=== PATIENT | female | born 1945 | race Caucasian/White ===

== ENCOUNTER 2016-11-29 05:21 | Inpatient (IN) | payer MEDICARE, OTHER ==
--- NOTE | ~2016-11-29 | HP ---
History And Physical [id number] [place]. [address] NAME: CRISPIN FERNANDEZ : 49 STATUS : ADM IN [facility]#: [id number] AGE: 71 ADM/REG DATE : 11/29/16 MR#: [id number] REPORT SERV DATE: 12/03/16 DICTATED BY: VAL HARDY III DATE: 11/29/16 REPORT STATUS : Draft TRANSCRIBED BY: MODTanya DATE: 11/29/16 DATE OF ADMISSION: 11/29/2016 HISTORY OF PRESENT ILLNESS: This 71-year-old female was admitted to the hospital emergently with acute abdominal pain. The patient complains of a one-day history of abdominal pain. The pain is primarily in the right upper quadrant. The pain began yesterday suddenly after eating. The pain has been associated with nausea and vomiting. The patient describes the pain as 8/10. The patient states that the pain is much better after admission to the hospital. The patient presented to the emergency room this morning with this pain. CT scan of the abdomen and pelvis were performed, which showed a right lower quadrant fluid collection of concern for an abscess. It was felt by the ER physician that admission to the hospital is indicated. The patient has no prior history of similar symptoms. She has had no diarrhea. She has had no fever or chills. The patient is status post sigmoid colectomy, which was performed for severe sigmoid diverticular disease on 10/25/2016, over one month ago. The patient's postoperative course was uneventful. The patient's recovery was uneventful. PAST MEDICAL HISTORY: 1. History of severe sigmoid diverticulitis with stricture, status post sigmoid colectomy as above. 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 2. Obesity. 3. History of elevated liver enzymes of unclear etiology. 4. Gastroesophageal reflux disease. 5. Degenerative joint disease. 6. Diabetes mellitus. ALLERGIES: ERYTHROMYCIN. MEDICATIONS: Cartia, Zantac, meclizine, and Dulera. SOCIAL HISTORY: The patient is . She lives locally. She is not employed. She has no history tobacco or alcohol use. FAMILY HISTORY: Unremarkable. REVIEW OF SYSTEMS: The patient's 14-point review of systems is otherwise unremarkable. PHYSICAL EXAMINATION: GENERAL: This is an obese female, in no acute distress. She is alert and oriented x3. VITAL SIGNS: Blood pressure 132/74, temperature 98, and pulse 90. History And Physical [address] [place]. [address] NAME: CRISPIN FERNANDEZ : 49 STATUS : ADM IN [facility]#: [id number] AGE: 71 ADM/REG DATE : 11/29/16 MR#: [id number] REPORT SERV DATE: 12/03/16 DICTATED BY: VAL HARDY III DATE: 11/29/16 REPORT STATUS : Draft TRANSCRIBED BY: MILDRED DATE: 11/29/16 HEENT: Unremarkable. Cranial nerves II through XII are normal. LUNGS: Clear. CARDIAC: Normal. ABDOMEN: Soft and nontender. EXTREMITIES: Normal with no edema. LABORATORY DATA: The patient's white blood cell count is slightly elevated at 14.2 and hematocrit is normal at 38.5. Her electrolytes and liver enzymes are normal. CT scan of the abdomen and pelvis, which I reviewed shows a small fluid collection in the right lower quadrant. I reviewed this with Dr. Rober Tucker of Radiology. He does not feel this is consistent with appendicitis even though the appendix is near this area. There is noted to be a smaller fluid collection posterior to the rectal anastomosis. There is no evidence for air. The gallbladder appeared to be normal. ASSESSMENT: 1. A 71-year-old female with acute right upper quadrant abdominal pain. The etiology for this is unclear. 2. Inflammatory process in the right lower quadrant with two air-fluid collections which were small, consistent with abscesses. Clinically, however, this would more likely consistent with postoperative fluid collection related to her sigmoid colectomy, which was over one month ago. 3. Obesity. 4. History of severe sigmoid diverticulitis. 5. History of elevated liver enzymes. It should be noted that a liver biopsy was performed at the time of her previous surgery. This liver biopsy showed steatohepatitis. 6. History of recurrent episodes of sigmoid diverticulitis since 2009. 7. Diabetes mellitus. 8. Degenerative joint disease. 9. Gastroesophageal reflux disease. PLAN: The patient has been admitted, started on parenteral fluids, bowel rest and antibiotics empirically. While the patient does have a fluid collection seen in the pelvis on CT scan, I am concerned that this is not the etiology for her pain, which seems more likely to be biliary in origin. Nevertheless, I requested CT-directed drainage of this fluid collection to determine if this is an infected fluid collection. Even if it is, it is not consistent with the etiology for her pain. We will proceed with this procedure, which I have discussed with Radiology. Further workup including possible gallbladder ultrasound and HIDA scan may be indicated depending on results of this drainage procedure and the patient's clinical course. I have discussed this with the patient. I have discussed the discrepancy between the radiographic findings and her symptoms. Her questions were answered. She understands and agrees to this as planned. ADDENDUM: Ms. Fernandez remains stable at this time but continued to have upper abdominal pain, bloating, nausea, vomiting, food intolerance, and symptoms consistent with cholecystitis. Her gallbladder ultrasound shows sludge and her HIDA scan shows an abnormal ejection fraction. History And Physical [address] [address] NAME: CRISPIN FERNANDEZ : 49 STATUS : ADM IN [facility]#: [id number] AGE: 71 ADM/REG DATE : 11/29/16 MR#: [id number] REPORT SERV DATE: 12/03/16 DICTATED BY: VAL HARDY III DATE: 11/29/16 REPORT STATUS : Draft TRANSCRIBED BY: MODL DATE: 11/29/16 I believe, the patient's symptoms are related to cholecystitis and cholelithiasis. She has failed to respond to nonoperative management. I believe this is her primary source of her current symptoms, even though she does have a small pelvic abscess which has been drained and is essentially resolved clinically and radiographically. Based on her failure to improve, even though she has had recent colon surgery, I feel that laparoscopic cholecystectomy, possible laparotomy is indicated. The fact that this is a major operation with risk for major morbidity and mortality has been explained. The fact that she has increased risk of possible need for laparotomy due to her recent colon surgery has been explained as well as due to the recent pelvic abscess. The procedure, risks, benefits, and alternatives, including not limited to the risk for bleeding, infection, common bile duct injury, bile leak, retained common bile duct stone, enterotomy or injury to any abdominal structure, the definite possible need for laparotomy with possible persistence of her symptoms unrelieved by surgery, possibility of postoperative diarrhea or incisional hernia and unforeseen complications including deep venous thrombosis, pulmonary embolus, myocardial infarction, stroke, pneumonia, and , have been fully and completely explained to the patient at length prior to surgery. The fact that this is a major operation with high risk for morbidity and mortality, and no guarantee for relief of her symptoms were explained to her. The expected length of recovery with open laparoscopic procedures has been explained. The fact that she has increased risk of possible need for laparotomy, for the above reasons has been explained. The patient's questions have been answered. She understands the risks and agrees to surgery as planned. RHJ/MODL Val Hardy III, M.D. / [id number] / [id number] CC: Val Hardy III, M.D.
--- NOTE | ~2016-11-29 | OP ---
Record Of Operation [facility] [address] [place]. [address] NAME: CRISPIN QUEZADA : 49 STATUS : ADM IN [facility]#: [id number] AGE: 71 ADM/REG DATE : 11/29/16 MR#: [id number] REPORT SERV DATE: 12/03/16 DICTATED BY: VAL HARDY III DATE: 12/03/16 REPORT STATUS : Draft TRANSCRIBED BY: MODL DATE: 12/03/16 DATE OF PROCEDURE: 12/03/2016 PREOPERATIVE DIAGNOSES: Symptomatic cholelithiasis and cholecystitis. OPERATIVE DIAGNOSES: Symptomatic cholelithiasis and cholecystitis. PROCEDURE: Laparoscopic cholecystectomy. SURGEON: Val Hardy M.D. ANESTHESIA: General with intubation. COMPLICATIONS: None. ESTIMATED BLOOD LOSS: Less than 30 mL. SPECIMENS: Gallbladder. DRAINS: None. LAP AND SPONGE COUNT: Correct x3. BRIEF HISTORY: This 71-year-old female presented with evidence for symptomatic cholelithiasis and cholecystitis. She had been admitted to the hospital several days ago with small pelvic abscess, which had been drained radiographically, which was related to diverticulitis the patient had in the past. It was felt that laparoscopic cholecystectomy, possible laparotomy, was indicated. This procedure, the risks, benefits, and alternatives, including not limited to the risk for bleeding, infection, common bile duct injury, bile leak, retained common bile duct stone, enterotomy, injury to any abdominal structure, the definite possible need for laparotomy and possible persistence of her symptoms unrelieved by surgery, possibility of postoperative diarrhea or incisional hernia, and unforeseen complications including deep venous thrombosis, pulmonary embolus, myocardial infarction, stroke, pneumonia, and , were fully and completely explained to the patient's family at length prior to surgery. The fact that this was a major operation with risk for major morbidity and mortality, no guarantee for relief of her symptoms was explained to her. The expected length of recovery with both open and laparoscopic procedures was explained. The patient had questions, which were answered. She fully understood the risks and agreed to surgery as planned. It should be noted that the patient had a recent sigmoid colectomy and it also explained that she would be at increased risk for complications, including enterotomy or common bile duct injury and possible need for laparotomy due to her previous surgery. Again, her questions were answered. She understood the risks and agreed to surgery as planned. Record Of Operation [facility] [address] [place]. [address] NAME: CRISPIN QUEZADA : 49 STATUS : ADM IN PAT#: [id number] AGE: 71 ADM/REG DATE : 11/29/16 MR#: [id number] REPORT SERV DATE: 12/03/16 DICTATED BY: VAL HARDY III DATE: 12/03/16 REPORT STATUS : Draft TRANSCRIBED BY: MILDRED DATE: 12/03/16 PROCEDURE IN DETAIL: After being appropriately identified and after discussing risks of surgery with the patient and family again in the preoperative area, the patient was taken to the operating room and placed in the supine position on the operating room table. General anesthesia was administered and she was intubated without difficulty. The abdomen was prepped and draped sterilely in the usual fashion. After an appropriate "time-out" per [facility] standards, a small transverse incision was made just beneath the xiphoid process. The incision was continued through the subcutaneous tissue. Hemostasis was controlled with cautery. The incision was continued through the fascia. The abdominal cavity was entered. A #10 balloon-tipped Origin trocar was placed under direct vision into the peritoneal cavity. The balloon was inflated. The abdominal cavity was insufflated to about 13 mmHg with carbon dioxide. Correct position of the air in the peritoneal cavity was confirmed by palpation. The laparoscope was placed through this. The abdomen was inspected. There was a window for us to operate within in the right upper quadrant. There were adhesions between the omentum and the underside of the abdominal wall beneath the previous midline incision, but the right side of the abdomen was free and we were able to proceed laparoscopically. A 10-mm trocar was then placed just beneath the umbilicus, to the right of the midline, under direct vision of a laparoscope. The laparoscope was now placed through this infraumbilical trocar. The patient was placed in the reverse Trendelenburg position and to her left. Two 5-mm trocars were placed along the right subcostal margin, one in the midaxillary line and the other in the midclavicular line. These were also placed under direct vision of the laparoscope. The upper abdomen was inspected. The gallbladder appeared to be chronically diseased. The gallbladder nolen were thickened and inflamed and there were adhesions between the gallbladder and the omentum consistent with chronic cholecystitis. The liver and remainder of the upper abdomen and lower abdomen and pelvis were unremarkable as far as we could determine through the laparoscope. We could not visualize the area in the pelvis where her drains were located as this was very posterior. The appropriate instruments were placed through the trocars. Using sharp dissection, the adhesions between the gallbladder and omentum were carefully divided. The gallbladder was then grasped and the infundibulum of the gallbladder was retracted laterally and inferiorly so as to expose the triangle of Calot. Using sharp dissection, the cystic duct was carefully and meticulously defined proximally and distally. The cystic duct was fairly long. The junction of the cystic duct with the common bile duct was appreciated, but was not skeletonized. The cystic artery was similarly defined proximally and distally. The fibrous and fatty tissue between these structures was divided so as to clearly identify the critical view of safety and triangle of Calot. The lower portion of the gallbladder was dissected away from the liver plate so as to clearly identify the critical view of safety and critical angle. Once these structures were clearly defined, the cystic duct was clipped with two clips on the common bile duct side and one on the gallbladder side, all placed as close to the gallbladder as possible, taking care not to encroach upon or injure the common bile duct in any way. The cystic duct was then divided between these clips as close to the gallbladder as possible. We elected not to perform a cholangiogram because there was no preoperative or intraoperative evidence for biliary dilatation, because the patient's preoperative liver enzymes were normal and because her biliary anatomy was clearly defined. The cystic artery was then similarly clipped and divided as close to the gallbladder as Record Of Operation [id number] [facility] [place]. [address] NAME: CRISPIN QUEZADA : 49 STATUS : ADM IN [facility]#: [id number] AGE: 71 ADM/REG DATE : 11/29/16 MR#: [id number] REPORT SERV DATE: 12/03/16 DICTATED BY: VAL HARDY III DATE: 12/03/16 REPORT STATUS : Draft TRANSCRIBED BY: MODL DATE: 12/03/16 possible. Using spatula and the cautery, the gallbladder was carefully dissected from the liver bed. This went very well. Before the gallbladder was completely removed, the gallbladder bed and portal areas were irrigated numerous times with saline. The saline was aspirated dry. This process was repeated several times until hemostasis was meticulously and thoroughly assured in all areas. It was also assured that the clips in the portal area were in good position, and there was no extravasation of bile from any accessory bile ducts. Once this was assured, gallbladder and the Endopouch were brought out through the subxiphoid trocar site. The fascia of this incision was closed with 0 Vicryl suture. The upper three trocars were inspected on the underside for hemostasis with the laparoscope. The remaining two trocars in the right upper quadrant were then removed under direct vision with the laparoscope to assure hemostasis in all three of these incisions. Finally, the infraumbilical trocar was removed under direct vision with laparoscope to assure hemostasis in this incision. The air was removed from the peritoneal cavity through this incision. The fascia of this incision was closed with 0 Vicryl suture. The skin incisions were inspected for hemostasis. They were then closed with running subcuticular 4-0 Monocryl stitches. They were injected with 0.5% Marcaine. Dressings were applied. Anesthesia was reversed. The patient was taken to the recovery room in stable condition. She tolerated the procedure well. Her family was informed of the results of surgery. The patient will remain in the hospital for postoperative care. RHJ/KALEEL Val Hardy III, M.D. / [id number] CC: Joseph Black III, CRYSTAL
--- NOTE | ~2016-11-29 | HP ---
History And Physical [id number] [place]. [address] NAME: CRISPIN FERNANDEZ : 49 STATUS : ADM IN [facility]#: [id number] AGE: 71 ADM/REG DATE : 11/29/16 MR#: [id number] REPORT SERV DATE: 12/03/16 DICTATED BY: VAL HARDY III DATE: 12/03/16 REPORT STATUS : Draft TRANSCRIBED BY: MODTanya DATE: 12/03/16 DATE OF ADMISSION: 11/29/2016 ADDENDUM: Ms. Fernandez remains stable at this time but continued to have upper abdominal pain, bloating, nausea, vomiting, food intolerance, and symptoms consistent with cholecystitis. Her gallbladder ultrasound shows sludge and her HIDA scan shows an abnormal ejection fraction. I believe, the patient's symptoms are related to cholecystitis and cholelithiasis. She has failed to respond to nonoperative management. I believe this is her primary source of her current symptoms, even though she does have a small pelvic abscess which has been drained and is essentially resolved clinically and radiographically. Based on her failure to improve, even though she has had recent colon surgery, I feel that laparoscopic cholecystectomy, possible laparotomy is indicated. The fact that this is a major operation with risk for major morbidity and mortality has been explained. The fact that she has increased risk of possible need for laparotomy due to her recent colon surgery has been explained as well as due to the recent pelvic abscess. The procedure, risks, benefits, and alternatives, including not limited to the risk for bleeding, infection, common bile duct injury, bile leak, retained common bile duct stone, enterotomy or injury to any abdominal structure, the definite possible need for laparotomy with possible persistence of her symptoms unrelieved by surgery, possibility of postoperative diarrhea or incisional hernia and unforeseen complications including deep venous thrombosis, pulmonary embolus, myocardial infarction, stroke, pneumonia, and , have been fully and completely explained to the patient at length prior to surgery. The fact that this is a major operation with high risk for morbidity and mortality, and no guarantee for relief of her symptoms were explained to her. The expected length of recovery with open laparoscopic procedures has been explained. The fact that she has increased risk of possible need for laparotomy, for the above reasons has been explained. The patient's questions have been answered. She understands the risks and agrees to surgery as planned. RHJ/MODL Val Hardy III, M.D. / [id number] CC: Val Hardy III, M.D.
--- NOTE | ~2016-11-29 | DS ---
Discharge Summary [facility] [address] [facility] [place]. [address] NAME: CRISPIN QUEZADA : 49 STATUS : DIS IN PAT#: [id number] AGE: 71 ADM/REG DATE : 11/29/16 MR#: [id number] REPORT SERV DATE: 12/12/16 DICTATED BY: VAL HARDY III DATE: 12/12/16 REPORT STATUS : Draft TRANSCRIBED BY: MILDRED DATE: 12/12/16 Data Collection from hospitalization DISCHARGE DIAGNOSES: 1. Symptomatic cholelithiasis and cholecystitis. 2. Diabetes mellitus. 3. History of severe sigmoid diverticulitis. 4. Obesity. 5. History of elevated liver enzymes, of unclear etiology. 6. Gastroesophageal reflux disease. 7. Degenerative joint disease. CONSULTATIONS: None. PROCEDURES: 1. Laparoscopic cholecystectomy, 12/03/2016. 2. CT scan of the abdomen and pelvis without contrast, 11/29/2016. 3. CT scan of the abdomen and pelvis with contrast, 11/29/2016. 4. CT-guided placement of a 10-Tongan percutaneous drain in each of the right lower quadrant fluid collections, 11/29/2016. 5. Gallbladder ultrasound, 11/30/2016. 6. CT scan of the abdomen and pelvis without contrast, 12/01/2016. 7. Abscess drain evaluation, 12/04/2016. PATHOLOGY: Gallbladder, cholecystectomy - chronic cholecystitis, cholesterolosis. DISCHARGE MEDICATIONS: Proventil one nebulized inhaler three times a day as needed, Zyrtec 10 mg as needed, Librax one capsule twice a day as needed, Antivert 25 mg every six hours as needed, Dulera two puffs via inhaler as needed, multivitamins with minerals one tablet every morning, Percocet 7.5/325 one tablet three times a day as needed, Zantac 150 mg daily as needed, Bactrim DS one tablet every 12 hours. CONDITION AT DISCHARGE: Stable. DISPOSITION: The patient was discharged home on a soft diet with activities as instructed. She would follow up with me on 12/13/2016. HOSPITAL COURSE: This is a 71-year-old female, who presented to the hospital emergently with acute abdominal pain. She complained of a one-day history of abdominal pain. The pain was primarily in the right upper quadrant. The pain began the day prior to admission suddenly after eating. The pain was associated with nausea and vomiting. The patient described the pain as an 8/10. She said that the pain was much better after admission to the hospital. She had presented to the emergency room with this pain. A CT scan of the abdomen and pelvis was performed without contrast and CT scan of the abdomen and pelvis with contrast was performed. She was found to have a right lower quadrant fluid collection that was concerning for abscess. She was admitted to the hospital at this time for further evaluation and treatment. Discharge Summary [place] [id number] [facility] [place]. [address] NAME: CRISPIN QUEZADA : 49 STATUS : DIS IN PAT#: [id number] AGE: 71 ADM/REG DATE : 11/29/16 MR#: [id number] REPORT SERV DATE: 12/12/16 DICTATED BY: VAL HARDY III DATE: 12/12/16 REPORT STATUS : Draft TRANSCRIBED BY: MODTanya DATE: 12/12/16 Upon admission, white count was slightly elevated at 14.2. Electrolytes and liver enzymes were normal. The patient was status post sigmoid colectomy on 10/25/2016, which had been performed for severe sigmoid diverticular disease. Her postoperative course had been uneventful and her recovery was uneventful. The patient had an inflammatory process in the right lower quadrant with two air-fluid collections, which were small consistent with abscesses. She was started on parenteral fluids, bowel rest, and empiric antibiotics. CT- directed drainage of this fluid collection was going to be performed. Gallbladder ultrasound did show sludge. Her HIDA scan showed an abnormal ejection fraction. It was felt that her symptoms may be related to cholecystitis and cholelithiasis. She underwent CT guided placement of a 10-Tongan percutaneous drain in each of the right lower quadrant fluid collections. The patient said that her nausea and pain had improved some. Cultures were pending. On 12/01/2016, she still complained of some lower abdominal pain, but no upper abdominal pain. She had had some nausea and vomiting the day previously and had had minimal oral intake. Antibiotics were continued. CT scan of the abdomen and pelvis without contrast was again performed. The fluid collection had pigtails in place. There was residual edema in the pelvis. There was diverticulosis of the sigmoid colon. There was one air-fluid collection that was approximately 1 cm in size and may represent a collection outside the bowel. This collection was not amenable to percutaneous drainage. On 12/02/2016, she said she was feeling better and had less pain. She did have some nausea, but no vomiting. White count was 11.6. She was felt to have evidence for symptomatic cholelithiasis and cholecystitis. Treatment options were discussed and it was elected to proceed with surgical intervention. On 12/03/2016, she was taken to the operating room, where she underwent the above-mentioned procedure. She tolerated this well and there were no complications. On postop day #1, she said she was feeling much better. Her nausea and bloating had resolved. She was afebrile. Her diet was going to be advanced. The JASPREET drain was removed. Discharge planning was performed. On 12/05/2016, the patient felt well and wanted to go home. She was eating well with normal bowel function. Discharge instructions were given. Due to her improved and stable condition, she was discharged home with the above-stated instructions. Information collected by: Carolina Malcolm I submit the above information as my discharge summary. TG/MODL Val Hardy III, M.D. / [id number] CC: Joseph Black III
[~2016-11-29 05:21] MED LIST: ALEVE220 MG PO; ASABAYER PO; AUSTRALIAN DREAM TOP; DULERA 100 MCG/13 GM INH; GLUCPH PO; LIBRAX PO; MCZ25 PO; MULTIVIT/MIN PO; PEP20 PO; PERCOCET1 TA2 PO; PROVENTSOL INH; ULTRAM50 PO; VENTOLIN HFA INH; ZANTAC 150 PO; ZOFRAN4; ZOFRAN4 PO; ZYRTEC ALLGY10 MG PO; [UNRECOGNIZED DRUG - OTHER] PO
[2016-11-29 05:44] LABS: BASOPHILS 0.3 %; BASOPHILS ABSOLUTE 0.04 10/3/uL (0.0-0.16); EOSINOPHILS 0.6 %; EOSINOPHILS ABSOLUTE 0.09 10/3/uL (0.0-0.53); HEMATOCRIT 38.5 % (36.0-48.0); HEMOGLOBIN 12.8 g/dL (12.0-16.0); IMMATURE GRANULOCYTES 0.4 %; IMMATURE GRANULOCYTES ABSOLUTE 0.05 10/3/uL (0.0-0.11); LYMPHOCYTES 15.7 %; LYMPHOCYTES ABSOLUTE 2.23 10/3/uL (0.67-4.30); MEAN CORPUS HGB CONC 33.2 g/dL (32.0-36.0); MEAN CORPUSCULAR HEMOGLOB 28.7 pg (26.0-34.0); MEAN CORPUSCULAR VOLUME 86.3 fL (80-100); MEAN PLATELET VOLUME 9.1 fL (9.2-13.0); MONOCYTES 6.8 %; MONOCYTES ABSOLUTE 0.96 10/3/uL (0.21-1.20); NEUTROPHILS 76.2 %; NEUTROPHILS ABSOLUTE 10.79 10/3/uL (2.02-8.40); PLATELET COUNT 390 10/3/uL (150-400); RBC DISTRIBUTION WIDTH 13.6 % (12.0-16.0); RED CELL COUNT 4.46 10/6/uL (4.0-5.6); WHITE BLOOD CELLS 14.2 10/3/uL (4.5-10.5)
[2016-11-29 05:46] LABS: MANUAL DIFF NO %
[2016-11-29 05:55] LABS: INTERNATIONAL NORMAL RATI 1.2 UNITS (-); PARTIAL THROMBO TIME 30.9 SEC (22.5-37.2); PROTIME (NOT ORD) 15.2 SEC (12.0-14.5)
[2016-11-29 06:02] LABS: ALBUMIN 2.8 G/DL (3.5-5.0); ALKALINE PHOSPHATASE 90 U/L (45-117); BUN (BLOOD UREA NITROGEN) 7 MG/DL (6-23); CALCIUM, SERUM 9.6 MG/DL (8.5-10.4); CHEST PAIN PROFILE TAT 0 Hrs 24 Mins; CHLORIDE, SERUM 101 MMOL/L (96-112); CO2 (CARBON DIOXIDE) 29 MMOL/L (24-34); CREATININE 0.72 MG/DL (0.55-1.02); DIRECT BILIRUBIN 0.2 MG/DL (0.0-0.4); GFR AFRICAN AMERICAN 99 ML/MIN (>=60); GFR NON AFRICAN AMERICAN 85 ML/MIN (>=60); GLUCOSE, SERUM 131 MG/DL (60-99); INDIRECT BILIRUBIN(NOT ORDER) 0.4 MG/DL (0.1-0.9); SGOT(AST) 20 U/L (5-40); SGPT(ALT) 26 U/L (5-65); SODIUM, SERUM 140 MMOL/L (135-148); TOTAL BILIRUBIN 0.6 MG/DL (0-1.2); TOTAL PROTEIN 8.1 G/DL (6.0-8.5); TROPONIN I <0.02 NG/ML (<0.05)
[2016-11-30 03:55] LABS: HEMATOCRIT 37.9 % (36.0-48.0); HEMOGLOBIN 12.5 g/dL (12.0-16.0); MEAN CORPUSCULAR HEMOGLOB 28.9 pg (26.0-34.0); MEAN CORPUSCULAR VOLUME 87.5 fL (80-100); MEAN PLATELET VOLUME 9.3 fL (9.2-13.0); PLATELET COUNT 417 10/3/uL (150-400); RBC DISTRIBUTION WIDTH 13.8 % (12.0-16.0); RED CELL COUNT 4.33 10/6/uL (4.0-5.6); WHITE BLOOD CELLS 18.7 10/3/uL (4.5-10.5)
[2016-11-30 03:56] LABS: MANUAL DIFF YES %
[2016-11-30 04:08] LABS: BUN (BLOOD UREA NITROGEN) 9 MG/DL (6-23); CALCIUM, SERUM 8.7 MG/DL (8.5-10.4); CHLORIDE, SERUM 101 MMOL/L (96-112); CO2 (CARBON DIOXIDE) 27 MMOL/L (24-34); CREATININE 0.81 MG/DL (0.55-1.02); GFR AFRICAN AMERICAN 86 ML/MIN (>=60); GFR NON AFRICAN AMERICAN 74 ML/MIN (>=60); GLUCOSE, SERUM 139 MG/DL (60-99); SODIUM, SERUM 138 MMOL/L (135-148)
[2016-11-30 04:43] LABS: BAND NEUTROPHILS 6 %; LYMPHOCYTES 3 %; LYMPHOCYTES ABSOLUTE (CALC) 0.56 10/3/uL (0.67-4.30); MONOCYTES 2 %; MONOCYTES ABSOLUTE (CALC) 0.37 10/3/uL (0.21-1.20); NEUTROPHILS ABSOLUTE (CALC) 17.77 10/3/uL (2.02-8.40); SEGMENTED NEUTROPHIL (0) 89 %; TOTAL NUCLEATED CELLS 100
[2016-11-30 04:44] LABS: PLATELET ESTIMATE SLT INC (ADEQUATE); RBC MORPHOLOGY NORM (NORMAL)
[2016-12-01 05:23] LABS: BASOPHILS 0.2 %; BASOPHILS ABSOLUTE 0.02 10/3/uL (0.0-0.16); EOSINOPHILS 0.8 %; EOSINOPHILS ABSOLUTE 0.09 10/3/uL (0.0-0.53); HEMATOCRIT 35.2 % (36.0-48.0); HEMOGLOBIN 11.6 g/dL (12.0-16.0); IMMATURE GRANULOCYTES 0.3 %; IMMATURE GRANULOCYTES ABSOLUTE 0.04 10/3/uL (0.0-0.11); LYMPHOCYTES 13.6 %; LYMPHOCYTES ABSOLUTE 1.55 10/3/uL (0.67-4.30); MANUAL DIFF NO %; MEAN CORPUSCULAR HEMOGLOB 28.7 pg (26.0-34.0); MEAN CORPUSCULAR VOLUME 87.1 fL (80-100); MEAN PLATELET VOLUME 8.9 fL (9.2-13.0); MONOCYTES 10.1 %; MONOCYTES ABSOLUTE 1.16 10/3/uL (0.21-1.20); NEUTROPHILS ABSOLUTE 8.57 10/3/uL (2.02-8.40); PLATELET COUNT 371 10/3/uL (150-400); RBC DISTRIBUTION WIDTH 13.9 % (12.0-16.0); RED CELL COUNT 4.04 10/6/uL (4.0-5.6); WHITE BLOOD CELLS 11.4 10/3/uL (4.5-10.5)
[2016-12-01 05:34] LABS: BUN (BLOOD UREA NITROGEN) 6 MG/DL (6-23); CALCIUM, SERUM 8.9 MG/DL (8.5-10.4); CHLORIDE, SERUM 102 MMOL/L (96-112); CO2 (CARBON DIOXIDE) 29 MMOL/L (24-34); CREATININE 0.73 MG/DL (0.55-1.02); GFR AFRICAN AMERICAN 97 ML/MIN (>=60); GFR NON AFRICAN AMERICAN 84 ML/MIN (>=60); GLUCOSE, SERUM 144 MG/DL (60-99); POTASSIUM, SERUM 4.3 MMOL/L (3.5-5.3); SODIUM, SERUM 136 MMOL/L (135-148)
[2016-12-01 14:57] LABS: WBC (NOT ORDERED) (RFLEX) 0 (0-5)
[2016-12-01 15:31] LABS: ASCORBIC ACID (UR NOT ORDER) NEG (NEG); BILIRUBIN, URINE NEGATIVE (NEG); KETONE, URINE NEGATIVE (NEG); LEUKOCYTE ESTERASE(NOT OR NEG (NEG)
[2016-12-02 06:21] LABS: BASOPHILS 0.3 %; BASOPHILS ABSOLUTE 0.03 10/3/uL (0.0-0.16); EOSINOPHILS 1.2 %; EOSINOPHILS ABSOLUTE 0.14 10/3/uL (0.0-0.53); HEMATOCRIT 35.2 % (36.0-48.0); HEMOGLOBIN 11.8 g/dL (12.0-16.0); IMMATURE GRANULOCYTES 0.3 %; IMMATURE GRANULOCYTES ABSOLUTE 0.04 10/3/uL (0.0-0.11); LYMPHOCYTES 16.9 %; LYMPHOCYTES ABSOLUTE 1.96 10/3/uL (0.67-4.30); MANUAL DIFF NO %; MEAN CORPUS HGB CONC 33.5 g/dL (32.0-36.0); MEAN CORPUSCULAR HEMOGLOB 29.1 pg (26.0-34.0); MEAN CORPUSCULAR VOLUME 86.7 fL (80-100); MEAN PLATELET VOLUME 9.1 fL (9.2-13.0); MONOCYTES 9.3 %; MONOCYTES ABSOLUTE 1.08 10/3/uL (0.21-1.20); NEUTROPHILS ABSOLUTE 8.35 10/3/uL (2.02-8.40); PLATELET COUNT 390 10/3/uL (150-400); RED CELL COUNT 4.06 10/6/uL (4.0-5.6); WHITE BLOOD CELLS 11.6 10/3/uL (4.5-10.5)
[2016-12-02 06:41] LABS: A/G RATIO 0.5 (0.7-1.9); ALBUMIN 2.3 G/DL (3.5-5.0); ALKALINE PHOSPHATASE 67 U/L (45-117); BUN (BLOOD UREA NITROGEN) 3 MG/DL (6-23); CALCIUM, SERUM 9.1 MG/DL (8.5-10.4); CHLORIDE, SERUM 101 MMOL/L (96-112); CO2 (CARBON DIOXIDE) 29 MMOL/L (24-34); CREATININE 0.64 MG/DL (0.55-1.02); GFR AFRICAN AMERICAN 106 ML/MIN (>=60); GFR NON AFRICAN AMERICAN 91 ML/MIN (>=60); GLOBULIN 4.7 G/DL (2.5-4.1); GLUCOSE, SERUM 150 MG/DL (60-99); POTASSIUM, SERUM 4.1 MMOL/L (3.5-5.3); SGOT(AST) 17 U/L (5-40); SGPT(ALT) 18 U/L (5-65); SODIUM, SERUM 137 MMOL/L (135-148); TOTAL BILIRUBIN 0.5 MG/DL (0-1.2)
[2016-12-03 06:34] LABS: BASOPHILS 0.5 %; BASOPHILS ABSOLUTE 0.05 10/3/uL (0.0-0.16); EOSINOPHILS 1.7 %; EOSINOPHILS ABSOLUTE 0.18 10/3/uL (0.0-0.53); HEMATOCRIT 37.8 % (36.0-48.0); HEMOGLOBIN 12.4 g/dL (12.0-16.0); IMMATURE GRANULOCYTES 0.4 %; IMMATURE GRANULOCYTES ABSOLUTE 0.04 10/3/uL (0.0-0.11); LYMPHOCYTES 22.7 %; LYMPHOCYTES ABSOLUTE 2.35 10/3/uL (0.67-4.30); MANUAL DIFF NO %; MEAN CORPUS HGB CONC 32.8 g/dL (32.0-36.0); MEAN CORPUSCULAR HEMOGLOB 28.4 pg (26.0-34.0); MEAN CORPUSCULAR VOLUME 86.7 fL (80-100); MEAN PLATELET VOLUME 9.1 fL (9.2-13.0); MONOCYTES 9.1 %; MONOCYTES ABSOLUTE 0.94 10/3/uL (0.21-1.20); NEUTROPHILS 65.6 %; NEUTROPHILS ABSOLUTE 6.77 10/3/uL (2.02-8.40); PLATELET COUNT 496 10/3/uL (150-400); RBC DISTRIBUTION WIDTH 14.1 % (12.0-16.0); RED CELL COUNT 4.36 10/6/uL (4.0-5.6); WHITE BLOOD CELLS 10.3 10/3/uL (4.5-10.5)
[2016-12-03 06:46] LABS: BUN (BLOOD UREA NITROGEN) 2 MG/DL (6-23); CALCIUM, SERUM 9.9 MG/DL (8.5-10.4); CHLORIDE, SERUM 101 MMOL/L (96-112); CO2 (CARBON DIOXIDE) 27 MMOL/L (24-34); CREATININE 0.74 MG/DL (0.55-1.02); GFR AFRICAN AMERICAN 96 ML/MIN (>=60); GFR NON AFRICAN AMERICAN 83 ML/MIN (>=60); GLUCOSE, SERUM 133 MG/DL (60-99); POTASSIUM, SERUM 4.2 MMOL/L (3.5-5.3); SODIUM, SERUM 138 MMOL/L (135-148)
[2016-12-04 07:10] LABS: BASOPHILS 0.3 %; BASOPHILS ABSOLUTE 0.03 10/3/uL (0.0-0.16); EOSINOPHILS 1.2 %; EOSINOPHILS ABSOLUTE 0.13 10/3/uL (0.0-0.53); HEMATOCRIT 36.8 % (36.0-48.0); HEMOGLOBIN 12.2 g/dL (12.0-16.0); IMMATURE GRANULOCYTES 0.2 %; IMMATURE GRANULOCYTES ABSOLUTE 0.02 10/3/uL (0.0-0.11); LYMPHOCYTES 17.4 %; LYMPHOCYTES ABSOLUTE 1.94 10/3/uL (0.67-4.30); MANUAL DIFF NO %; MEAN CORPUS HGB CONC 33.2 g/dL (32.0-36.0); MEAN CORPUSCULAR HEMOGLOB 28.3 pg (26.0-34.0); MEAN CORPUSCULAR VOLUME 85.4 fL (80-100); MEAN PLATELET VOLUME 8.9 fL (9.2-13.0); MONOCYTES 11.1 %; MONOCYTES ABSOLUTE 1.24 10/3/uL (0.21-1.20); NEUTROPHILS 69.8 %; NEUTROPHILS ABSOLUTE 7.81 10/3/uL (2.02-8.40); PLATELET COUNT 476 10/3/uL (150-400); RBC DISTRIBUTION WIDTH 14.3 % (12.0-16.0); RED CELL COUNT 4.31 10/6/uL (4.0-5.6); WHITE BLOOD CELLS 11.2 10/3/uL (4.5-10.5)
[2016-12-04 07:25] LABS: A/G RATIO 0.6 (0.7-1.9); ALBUMIN 2.7 G/DL (3.5-5.0); ALKALINE PHOSPHATASE 75 U/L (45-117); BUN (BLOOD UREA NITROGEN) 3 MG/DL (6-23); CALCIUM, SERUM 9.6 MG/DL (8.5-10.4); CHLORIDE, SERUM 100 MMOL/L (96-112); CO2 (CARBON DIOXIDE) 26 MMOL/L (24-34); CREATININE 0.83 MG/DL (0.55-1.02); GFR AFRICAN AMERICAN 83 ML/MIN (>=60); GFR NON AFRICAN AMERICAN 72 ML/MIN (>=60); GLOBULIN 4.8 G/DL (2.5-4.1); GLUCOSE, SERUM 150 MG/DL (60-99); POTASSIUM, SERUM 3.9 MMOL/L (3.5-5.3); SGOT(AST) 59 U/L (5-40); SGPT(ALT) 41 U/L (5-65); SODIUM, SERUM 137 MMOL/L (135-148); TOTAL BILIRUBIN 0.6 MG/DL (0-1.2); TOTAL PROTEIN 7.5 G/DL (6.0-8.5)
[2016-12-05] MEDS ORDERED: BACDS PO (08:38)
== END 2016-12-05 09:38 | disposition home or self-care (01) | DRG 417 ==
LOC: ER 05:21 → ER/OF 10:30 → CDU1 11:02 → CDU2 12:03 → 5SO 11-30 21:50
PROVIDERS: Nurse Practitioner; Surgery
PROC: 0W9G30Z Drainage of Peritoneal Cavity with Drainage Device, Percutaneous Approach (ICD-10-PCS; 2016-11-29)
PROC: 0FT44ZZ Resection of Gallbladder, Percutaneous Endoscopic Approach (ICD-10-PCS; principal; 2016-12-03 14:30)
DX: K80.10 Calculus of gallbladder with chronic cholecystitis without obstruction (principal); K65.1 Peritoneal abscess; E11.9 Type 2 diabetes mellitus without complications; K21.9 Gastro-esophageal reflux disease without esophagitis; M19.90 Unspecified osteoarthritis, unspecified site; Z88.1 Allergy status to other antibiotic agents; Z79.899 Other long term (current) drug therapy; E66.9 Obesity, unspecified; Z68.32 Body mass index [BMI] 32.0-32.9, adult
CPT/HCPCS: 49083; 49418; 49424; 71010; 74176; 74177; 76080; 76705; 78227; 80048; 80053; 80076; 81001; 82962; 83605; 83690; 83735; 84484; 85025; 85610; 85730; 87040; 87070; 87075; 87077; 87186; 87205; 88304; 93005; 96374; 96375; 99285; A9270-GY; A9537; C1729; C1769; J0295; J1170; J2250; J2405; J2543; J2710; J2765; J2805; J3010; Q9967